=== PATIENT | female | born 1960 | race Caucasian/White ===

== ENCOUNTER 2018-06-17 16:30 | Emergency (ER) | payer OTHER ==
[~2018-06-17] VITALS: Ht 170.2 cm; Wt 98.9 kg
[~2018-06-17 16:30] MED LIST: 362; BIO-CEF500 MG PO; CAT0.1 PO; DIABETA5; ECO81 PO; ENALAPRIL10 MG PO; ESIDRIX; HYD25 PO; L40 PO; METFORMIN1000 MG PO; MIC8 PO; PROCARDIA PO; SULFAMETHOXAZO PO; VITAMIN D PO
[2018-06-17 16:36] VITALS: BP 154/75; Ht 170.2 cm; Wt 98.9 kg
== END 2018-06-17 17:36 | disposition left against medical advice (07) ==
LOC: ED 16:30
DX: Z53.21 Procedure and treatment not carried out due to patient leaving prior to being seen by health care provider (principal)

== ENCOUNTER 2018-11-18 07:20 | Day surgery (SDC) | payer OTHER ==
[~2018-11-18] VITALS: Ht 175.3 cm; Wt 94.8 kg
[2018-11-18 07:45] VITALS: BP 136/87
[2018-11-18 12:11] VITALS: BP 158/90
== END 2018-11-18 11:25 | disposition home or self-care (01) ==
LOC: GI 07:20 → OR 11:00 → GI 11:25
DX: K63.5 Polyp of colon (principal); F17.210 Nicotine dependence, cigarettes, uncomplicated; Z98.890 Other specified postprocedural states; Z88.8 Allergy status to other drugs, medicaments and biological substances
CPT/HCPCS: 45378; J1200; J1610; J2250; J2310; J3010; J3490

== ENCOUNTER 2019-03-23 07:01 | Emergency (ER) | payer OTHER ==
[~2019-03-23] VITALS: Ht 175.3 cm; Wt 95.7 kg
[2019-03-23 07:18] VITALS: BP 153/77; Ht 175.3 cm; Wt 95.7 kg
== END 2019-03-23 08:05 | disposition home or self-care (01) ==
LOC: ED 07:01
DX: I73.00 Raynaud's syndrome without gangrene (principal); J44.9 Chronic obstructive pulmonary disease, unspecified; I10 Essential (primary) hypertension; E11.9 Type 2 diabetes mellitus without complications; F17.200 Nicotine dependence, unspecified, uncomplicated; Z88.5 Allergy status to narcotic agent; Z88.8 Allergy status to other drugs, medicaments and biological substances
CPT/HCPCS: 99406

== ENCOUNTER 2019-05-17 21:01 | Emergency (ER) | payer OTHER ==
[~2019-05-17] VITALS: Ht 175.3 cm; Wt 96.2 kg
[2019-05-17 21:08] VITALS: BP 153/88; Ht 175.3 cm; Wt 96.2 kg
[2019-05-17 22:12] LABS: BASOPHIL % 1.6 % (0-2); PLATELET COUNT 157 x10^3mcL (130-400); RED CELL DISTRIBUTION WIDTH 12.8 % (11.5-14.5)
[2019-05-17 22:27] LABS: CALCIUM 9.1 mg/dL (8.5-10.1); CARBON DIOXIDE 29.4 mmol/L (21-32); CHLORIDE SERUM 96 mmol/L (98-107); GFR1 > 60 mL/min; GLUCOSE SERUM 337 mg/dL (74-106); POTASSIUM SERUM 3.5 mmol/L (3.5-5.1); SODIUM SERUM 133 mmol/L (136-145)
[2019-05-17 22:33] LABS: ALKALINE PHOSPHATASE 85 U/L (46-116); ALT/SGPT 43 U/L (14-59); AST/SGOT 25 U/L (15-37); BILIRUBIN TOTAL 0.7 mg/dL (0.20-1.00); C REACTIVE PROTEIN 0.3 mg/dL (<=0.9); TOTAL PROTEIN, SERUM 7.2 g/dL (6.4-8.2)
[2019-05-17 22:38] LABS: ALBUMIN 3.3 g/dL (3.4-5.0)
[2019-05-17 22:54] LABS: ERYTHROCYTE SED RATE 16 mm/hr (0-30)
== END 2019-05-17 23:30 | disposition home or self-care (01) ==
LOC: ED 21:01
PROVIDERS: Specialist
DX: L03.011 Cellulitis of right finger (principal); E11.65 Type 2 diabetes mellitus with hyperglycemia; I10 Essential (primary) hypertension; E11.9 Type 2 diabetes mellitus without complications; J44.9 Chronic obstructive pulmonary disease, unspecified; Z88.5 Allergy status to narcotic agent; Z88.1 Allergy status to other antibiotic agents
CPT/HCPCS: 36415; J0696; J1885